=== PATIENT | female | born 1960 | race Caucasian/White ===

== ENCOUNTER 2024-03-27 23:57 | Emergency (ER) | payer BC, OTHER ==
[~2024-03-27 23:57] MED LIST: Iopamidol 370 76% 100 ML VIAL ONE; Sodium Chloride 0.9% 100 ML BAG ONE
[2024-03-28] MEDS ORDERED: Ibuprofen 600 MG TAB ONE (01:07)
[2024-03-28] MEDS ORDERED: methylPREDNISolone Sod Succ/PF 125 MG/2 ML VIAL ONE (01:08)
[2024-03-28] MEDS ORDERED: traMADol HCl 50 MG TAB ONE (01:08)
[2024-03-28] MEDS ORDERED: Acetaminophen 500 MG TAB ONE (01:08)
[2024-03-28] MEDS ORDERED: Sodium Chloride 0.9% 500 ML ONE (01:09)
[2024-03-28 01:19] LABS: Band 3 % (5-11); Hematocrit 33.4 % (36.0-47.0); Hemoglobin 11.2 g/dL (12.0-16.0); Lymphocytes 12 % (21-51); MDiff Complete? YES; Mean Corpuscular HGB CONC 33.4 g/dL (32.0-36.0); Mean Corpuscular Hemoglobin 30.6 pg (27.0-31.0); Mean Corpuscular Volume 91.4 fl (78.0-98.0); Mean Platelet Volume 6.8 fL (7.4-10.4); Monocytes 10 % (0-10); Neutrophil 75 % (42-75); Platelet Count 193 10x3/uL (130-400); RBC Distribution Width 12.3 % (11.5-14.5); Red Blood Cell (RBC) Count 3.65 mill/uL (4.20-5.40); White Blood Cell (WBC) Count 11.1 10x3/uL (4.8-10.8)
[2024-03-28] MEDS ORDERED: Aspirin Chewable 81 MG TAB ONE (01:32)
[2024-03-28 01:34] LABS: Critical Call Chem Troponin I MAD.BLW @ 0134
[2024-03-28 01:38] LABS: ALT (SGPT) 220 U/L (Less than 34); AST (SGOT) 265 U/L (11-34); Albumin 3.1 g/dL (3.1-4.5); Alkaline Phosphatase 111 U/L (40-110); Anion Gap 14 mmol/L (10-20); BUN (Urea Nitrogen) 25 mg/dL (9.8-20.1); Bilirubin, Total 0.6 mg/dL (0.3-1.2); Calc. Creatinine Clearance 0 mL/min (70-130); Calcium 8.5 mg/dL (7.8-10.44); Carbon Dioxide 26 mmol/L (23-31); Chloride 104 mmol/L (98-107); Estimated GFR 99; Globulin 2.2 g/dL (2.4-3.5); Glucose 115 mg/dL (80-115); Potassium 4.2 mmol/L (3.5-5.1); Protein, Total 5.3 g/dL (5.8-8.1); Sodium 140 mmol/L (136-145)
[2024-03-28] MEDS ORDERED: Furosemide 20 MG (2 mL) VIAL ONE (01:41)
== END 2024-03-28 02:51 | disposition short-term general hospital (02) ==
LOC: MADERS 23:57
DX: R07.81 Pleurodynia (principal); R07.89 Other chest pain; F17.210 Nicotine dependence, cigarettes, uncomplicated
CPT/HCPCS: 71275; 80053; 83605; 83880; 84484; 85025; 93005; 96374; J1940; J2919; J7030; Q9967